=== PATIENT | female | born 1945 | race Caucasian/White ===

== ENCOUNTER 2016-10-04 10:18 | Day surgery (SDC) | payer MEDICARE ==
[~2016-10-04] VITALS: Ht 160 cm; Wt 88.1 kg
[~2016-10-04 10:18] MED LIST: ALPR.25 PO; DICL50 PO; FURO20 PO; LEVO50TA4 PO; MULT-65 PO; PRIN10TA PO
[2016-10-04 10:51] VITALS: BP 164/78; PULSE 87; RESP 16; TEMP 98.2; O2SAT 98
[2016-10-04] MEDS ORDERED: LISI-519 PO (11:02)
[2016-10-04] MEDS ORDERED: ALPR0.25 PO (11:02)
[2016-10-04] MEDS ORDERED: FURO20TA PO (11:02)
[2016-10-04] MEDS ORDERED: PANT40TA3 PO (11:02)
[2016-10-04] MEDS ORDERED: VESI5TAB PO (11:02)
[2016-10-04] MEDS ORDERED: TRAM-492 PO (11:02)
[2016-10-04] MEDS ORDERED: MULT1TAB46 (11:02)
[2016-10-04] MEDS ORDERED: OMEGCAP PO (11:02)
[2016-10-04] MEDS ORDERED: LACTCAP8 PO (11:02)
[2016-10-04] MEDS ORDERED: TAMOPOW11 PO (11:02)
[2016-10-04] MEDS ORDERED: DOCU1CAP25 (11:02)
[2016-10-04] MEDS ORDERED: ASCO100016 (11:02)
[2016-10-04] MEDS ORDERED: LEVO25TA4 PO (11:02)
[2016-10-04] MEDS ORDERED: DICL75TA PO (11:02)
[2016-10-04] MEDS ORDERED: LORazepam 2 MG/ML VIAL ONE (11:03)
[2016-10-04] MEDS ORDERED: HEPARIN-NS/PF INJ 500 ML ONE (12:27)
[2016-10-04] MEDS ORDERED: MIDAZOLAM HCL 2 MG/2 ML VIAL ONE ×2 (12:42→13:11)
[2016-10-04] MEDS ORDERED: NITROGLYCERIN INJ 5 ML ONE (12:53)
[2016-10-04] MEDS ORDERED: HEPARIN SODIUM - IV 10,000 UNITS/10 ML VIAL ONE (12:53)
[2016-10-04] MEDS ORDERED: METOCLOPRAMIDE HCL 10 MG/2 ML VIAL IV PRN (13:30)
[2016-10-04] MEDS ORDERED: SODIUM CHLOR 0.9% 250 ML INJ 250 ML IV PRN (13:30)
[2016-10-04] MEDS ORDERED: oxyCODONE/ACETAMINOPHEN 5 MG/325 MG TAB PO PRN ×2 (13:30)
[2016-10-04] MEDS ORDERED: MISC INFORMATION XX ONE (13:30)
[2016-10-04] MEDS ORDERED: BACITRACIN OINT 0.9 GM PKT TOP ONE (13:30)
[2016-10-04] MEDS ORDERED: ONDANSETRON HCL 4 MG/2 ML VIAL IV PRN (13:30)
[2016-10-04] MEDS ORDERED: ATROPINE SULFATE 1 MG/ML VIAL IV PRN (13:30)
[2016-10-04] MEDS ORDERED: LORazepam 2 MG/ML VIAL IV PRN (13:30)
[2016-10-04] MEDS ORDERED: LIDOCAINE HCL 1% 50 ML VIAL INFIL PRN (13:30)
--- NOTE | 2016-10-04 13:39 | CATHPROC ---
[facility] HIS Report Study Information Study Number Admission Scheduled Start Study Start [id number] Oct 04 2016 10:18AM 10/04/2016 Oct 04 2016 12:33PM [facility] Cardiac Catheterization Admit Source Facility Department Other [facility] - Rfid Engineer Physician and Clinical Staff Initial Brian Jurado Radio Intelligence Operatorapoorva Avila RN, Martinez Sequeira cathlab, cathlab Recorder Cory Lackey RCIS(BS) Evie Bar RCIS TECH2 Procedures Performed Procedure Location (Site) Vessel Name Coronary Angiograms LCA Left Coronary Coronary Angiograms RCA Right Coronary L Heart Cath Equipment Time Shingle Carrier Description Size Mfg Part Number Used/Scraped TRANSDUCER, TRUWAVE [id number] 12:39 SILVERMAN LEAVITT * Used W/STOCKCOCK *[id number] TRANSDUCER, TRUWAVE [id number] 12:53 SILVERMAN LEAVITT * Used W/STOCKCOCK *[id number] 534-520T *[id number] [id number] *[id number] 12:39 MEDLINE INDUSTRIES PACK, CCL CUSTOM * Used *[id number] 12:39 BioCision PACER PEN, SKIN DUAL W/ RULER * Used *[id number] SHEATH, FR6 RADIAL PRELUDE 12:53 Hitlab MEDICAL FR 6 [id number] Used EASE 11CM [id number] 12:39 Hitlab MEDICAL WIRE, 3MMJ .035 180CM 180CM Used *[id number] 12:53 Hitlab MEDICAL WIRE, EXCHANGE 260CM 3MMJ 260CM Used *[id number] 12:39 NAMIC MANIFOLD, 2 PORT * Used *[id number] 12:39 NYCOMED OMNIPAQUE, 350 MG, 150ML 150ML [id number] Used [id number] 12:39 CORDOVA MEDICAL BLANKET,WARM AIR CCL * Used *[id number] 12:39 TERUMO MEDICAL SHEATH, FR5 TERUMO (10CM) FR 5 [id number] Used 12:59 TERUMO MEDICAL SHEATH, FR7 TERUMO (10CM) FR 7 [id number] Used History: Allergies Allergy Reaction Talwin SOB History: Risk Factors Family History of Hypertension Dyslipidemia Previous DE Previous Heart Failure Premature CAD Yes No No No No Prior Valve Prior PCI Prior CABG Surgery No No No Cerebrovascular Peripheral Artery Chronic Lung On Dialysis Diabetes Disease Disease Disease No No No No No History: Stress Tests Stress or Imaging Studies Performed No History: Other Disease Selection Items HTN History: Other Current Smoker No Labs Hgb (g/dl) Hct (%) WBC (l/cumm) Platelets (thousands) 12.00-18.00 37.00-55.00 4.80-10.80 140.00-450.00 11.3 35.7 4.5 98 Glucose (mg/dl) BUN (mg/dl) Creatinine (mg/dl) BUN:Creatinine (1:x) 60.00-110.00 8.00-20.00 0.10-9.00 10.00-20.00 109 18.8 0.8 23.5 Na (meq/l) K (meq/l) 138.00-146.00 3.80-5.10 142 4.4 INR (PTT:PT) 0.50-2.00 1.1 CPK-MB (ng/ML) 0.00-7.00 Not Drawn Medication Medication Total Dose (Bolus/Oral) Medication Total Dosage/Unit 1% XYLOCAINE 23 mL FENTANYL 100 mcg OXYGEN 2 l/min VERSED 4 mg Medications (Bolus/Oral) Medication Time Given Dosage/Unit Administered By Reason VERSED 10/04/2016 1:02:19 PM 2 mg Martinez Avila RN 2 mg VERSED given in lab by Martinez Avila RN in Right Forearm via Peripheral IV. Ordered by Crow Cheung. FENTANYL 10/04/2016 1:03:34 PM 50 mcg Martinez Avila RN 50 mcg FENTANYL given in lab by Martinez Avila RN in Right Forearm via Peripheral IV. Ordered by Brian Cheung. OXYGEN 10/04/2016 1:04:02 PM 2 l/min Austin PATTON, Martinez 2 l/min OXYGEN given in lab by Martinez Avila RN via Nasal. 1% XYLOCAINE 10/04/2016 1:06:30 PM 3 mL Brian Cheung 3 mL 1% XYLOCAINE given in lab by Brian Cheung in Right Radial via Subcutaneous. VERSED 10/04/2016 1:12:19 PM 1 mg Austin PATTON, Martinez 1 mg VERSED given in lab by Martinez Avila RN in Right Forearm via Peripheral IV. Ordered by Crow Cheung. FENTANYL 10/04/2016 1:13:25 PM 25 mcg Martinez Avila RN 25 mcg FENTANYL given in lab by Martinez Avila RN in Right Forearm via Peripheral IV. Ordered by Brian Cheung. 1% XYLOCAINE 10/04/2016 1:16:45 PM 20 mL Brian Cheung 20 mL 1% XYLOCAINE given in lab by Brian Cheung in Right Groin via Subcutaneous. FENTANYL 10/04/2016 1:21:13 PM 25 mcg Martinez Avila RN 25 mcg FENTANYL given in lab by Martinez Avila RN in Right Forearm via Peripheral IV. Ordered by Brian Cheung. VERSED 10/04/2016 1:22:27 PM 1 mg Martinez Avila RN 1 mg VERSED given in lab by Martinez Avila RN in Right Forearm via Peripheral IV. Ordered by Crow Cheung Medication (Drip) Medication Time Given Dosage/Unit Concentration/Unit Diluent (ml) Solution IV Solutions 10/04/2016 12:33:35 PM 0 mL (IV) 500 NaCl .9 Patient arrived on IV Solutions given by anupam bo in Right Forearm via Peripheral IV. Pump/Dr ip Flow = 20 ml/hr using NaCl .9. Initial Case Assessment Cardiovascular HR Rhythm NIBP Chest Pain 88 sinus 132/63 0 Edema Present Skin color Skin None Normal Warm Dry Circulatory - Right Pulses Dorsalis Pedis Femoral 2 2 Scale (0,1,2,3,4,d) Circulatory - Left Pulses Dorsalis Pedis Femoral 1 1 Scale (0,1,2,3,4,d) Neurological State Oriented to time-place- Alert Moves all extremities person Respiration - General Respiration Rate SpO2 (%) (B/min) 15 97 Final Case Assessment Cardiovascular HR Rhythm NIBP Chest Pain 93 sinus 97/50 0 Edema Present Skin color Skin None Normal Warm Dry Circulatory - Right Pulses Dorsalis Pedis Femoral 2 2 Scale (0,1,2,3,4,d) Circulatory - Left Pulses Dorsalis Pedis Femoral 1 1 Scale (0,1,2,3,4,d) Neurological State Oriented to time-place- Alert Moves all extremities person Respiration - General Respiration Rate SpO2 (%) O2 (lpm) (B/min) 13 99 2 Chronological Log Time Study Chronological Log 12:33:23 Patient arrived via Bed. 12:33:24 Patient Name, D.O.B, / Armband Verified By R.N. 12:33:24 Consent signed by the physician and the patient and verified by the Rfid Engineer staff. 12:33:25 Pre-op and post- op instructions given; patient acknowledges understanding of instructions. 12:33:25 Verbal Stimulation=2 Physical Stimulation=2 Airway=2 Respiration=2 TOTAL=8. (0=absent, 1=li mited, 2=present) 12:33: Presedation assessment performed by Rfid Engineer RN. 12:33: Immediate Presedation assesment performed by physician. 12:33: Patient has been NPO for More than 6Hrs. 12:33: Skin Breakdown- none per patient 12:: Patient Warmer Placed on the Table. 12:: Magdi Prominences Protected 12:33: A # 20 IV was noted in the Forearm (right). Grade = 0 Patient arrived on IV Solutions given by cathlab, cathlab in Right Forearm via Peripheral IV. P ump/Drip Flow = 20 ml/hr 12::35 using NaCl .9. 12:33:35 History and physical on the chart or being dictated. Assessment: Initial Case, HR=88 BPM, Rhythm=sinus, EILX=278/63 mmhg, Chest Pain=0, Edema=None, Color=Normal, Skin = Warm, Dry Right Pulses: Fred Ped=2, Femoral=2 12:49:03 Left Pulses: Fred Ped=1, Femoral=1 Neurological: State=Alert, Ox3, SHIELDS Respiration: Resp=15 B/min, SpO2=97 % 12:49:13 HR=89 bpm, VCSI=292/63 mmhg, SpO2=97.0 %, Resp=13 B/min, Pain=0, Jenae=10, Potter=2 12:50:22 MD arrived. 12:50:24 Bilateral groins and right radial prepped with 2% chlorhexidine, and with a 3 min. waiting time. 12:50:29 Immediate Presedation assesment performed by physician. 12:51:12 HR=85 bpm, MXAN=122/70 mmhg, SpO2=97.0 %, Resp=12 B/min, Pain=0, Jenae=10, Potter=2 12:53:13 HR=94 bpm, MMUX=225/76 mmhg, SpO2=96.0 %, Resp=16 B/min, Pain=0, Jenae=10, Potter=2 12:55:13 HR=91 bpm, IMYG=823/68 mmhg, SpO2=95.0 %, Resp=12 B/min, Pain=0, Jenae=10, Potter=2 Vitals capture started with the following parameters, Patient=Adult, Interval=5 min, Initial Pr bakhbk=603 mmHg, 12:56:45 Deflation Rate=5 mmHg 12:57:24 HR=95 bpm, QKCH=788/61 mmhg, SpO2=96.0 %, Resp=11 B/min, Pain=0, Jenae=10, Potter=2 13:02:19 2 mg VERSED given in lab by Martinez Avila RN in Right Forearm via Peripheral IV. Ordered by Brian Cheung. 13:02:23 HR=99 bpm, KLLN=445/62 mmhg, SpO2=96.0 %, Resp=14 B/min, Pain=0, Jenae=10, Potter=2 13:03:34 50 mcg FENTANYL given in lab by Martinez Avila RN in Right Forearm via Peripheral IV. Ordered by Brian Cheung. 13:04:02 2 l/min OXYGEN given in lab by Martinez Avila RN via Nasal. 13:05:12 Pressure channel 1 zeroed. Time Out. Correct patient, correct procedure,correct physician, ,power injector loaded with con trast with surgical team 13:05:53 present. Time Out Concurred by MD, individual staff in procedure 13:06:06 Case Start 13:06:07 Verbal Stimulation=2 Physical Stimulation=2 Airway=2 Respiration=2 TOTAL=8. (0=absent, 1=li mited, 2=present) 13:06:30 3 mL 1% XYLOCAINE given in lab by Brian Cheung in Right Radial via Subcutaneous. 13:07:24 HR=85 bpm, PGUT=274/55 mmhg, SpO2=96.0 %, Resp=11 B/min, Pain=0, Jenae=10, Potter=2 13:12:19 HR=86 bpm, ZGPX=803/50 mmhg, SpO2=99.0 %, Resp=12 B/min, Pain=0, Jenae=10, Potter=2 13:12:19 1 mg VERSED given in lab by Martinez Avila RN in Right Forearm via Peripheral IV. Ordered by Brian Cheung. 13:13:25 25 mcg FENTANYL given in lab by Martinez Avila RN in Right Forearm via Peripheral IV. Ordered by Biran Cheung. 13:14:39 Unable to obtain radial access, moving to RFA access. 13:16:45 20 mL 1% XYLOCAINE given in lab by Brian hCeung in Right Groin via Subcutaneous. 13:17:23 HR=84 bpm, NIBP=97/50 mmhg, SpO2=99.0 %, Resp=11 B/min, Pain=0, Jenae=10, Potter=2 13:17:37 Access site was Right Femoral Artery. 13:17:38 A SHEATH, FR5 TERUMO (10CM) FR 5 was advanced into the Fem Art (right) using the Percutaneo us technique. A JL 4.0 INFINITI CATHETER FR 5 was advanced over a wire. OMNIPAQUE, 350 MG, 150ML 150ML was us ed for 13:17:40 injections. Recorded Pressure: Ao, HR=83, Condition=Condition 1 13:17:42 (Aorta) Ao 90/48/65 13:18:12 The LCA was injected and visualized at various angles. OMNIPAQUE, 350 MG, 150ML 150ML used . After removing the current catheter a JR 4.0 INFINITI CATHETER FR 5 was advanced over a WIRE, 3 MMJ .035 180CM 13:19:06 180CM. 13:21:13 25 mcg FENTANYL given in lab by Martinez Avila RN in Right Forearm via Peripheral IV. Ordered by Brian Cheung. 13:21:13 The RCA was injected and visualized at various angles. OMNIPAQUE, 350 MG, 150ML 150ML used . 13:21:18 Catheter was removed 13:21:19 Case End Assessment: Final Case, HR=93 BPM, Rhythm=sinus, NIBP=97/50 mmhg, Chest Pain=0, Edema=None, C olor=Normal, Skin = Warm, Dry Right Pulses: Fred Ped=2, Femoral=2 13:21:27 Left Pulses: Fred Ped=1, Femoral=1 Neurological: State=Alert, Ox3, SHIELDS Respiration: Resp=13 B/min, SpO2=99 %, O2=2 lpm 13:22:05 Catheter(s) removed without difficulty 13:22:20 HR=90 bpm, PVWX=861/53 mmhg, NyU4=824.0 %, Resp=11 B/min, Pain=0, Jenae=10, Potter=2 13:22:27 1 mg VERSED given in lab by Austin PATTON, Martinez in Right Forearm via Peripheral IV. Ordered Brian Thomas. 13:23:32 Sheath removed; pressure applied to access site. 13:24:47 No case complications noted. 13:24:48 Cine recording checked. 13:24:49 Bedside Report will be given. 13:24:51 Verbal Stimulation=2 Physical Stimulation=2 Airway=2 Respiration=2 TOTAL=8. (0=absent, 1= limited, 2=present) 13:24:59 A Left Heart Cath was performed. 13:27:19 HR=84 bpm, NIBP=98/53 mmhg, SpO2=99.0 %, Resp=11 B/min, Pain=0, Jenae=10, Potter=2 13:32:54 HR=83 bpm, OSKN=910/53 mmhg, LfD0=399.0 %, Resp=11 B/min, Pain=0, Jenae=10, Potter=2 13:35:42 Sterile dressing applied to site Vitals capture started with the following parameters, Patient=Adult, Interval=5 min, Initial Arwszong=835 mmHg, 13:38:03 Deflation Rate=5 mmHg 13:38:39 HR=83 bpm, AFHD=598/59 mmhg, DsP6=688 %, Resp=11 B/min 13:38:54 Vitals capture stopped. 13:40:44 [facility] - Contrast Media Used In Study Contrast Total Opened (mL) Total Used (mL) Total Wasted (mL) Omnipaque 40 40 0 End Study - Maximum Contrast Load Max Contrast Load (mL) 550.6 End Study - Radiation Exposure Fluoro Time (minutes) 1.2 End Study - Sheaths Sheaths Pulled By Sheath Hold Time (min) Evie Malhotra 15 End Study - Patient Disposition Complications Transferred To Interventional Outcome No Rfid Engineer Holding No attempt made
[2016-10-04] MEDS ORDERED: LORazepam 2 MG/ML VIAL IV ONE (13:45)
[2016-10-04] MEDS ORDERED: SODIUM CHLORIDE 0.9% FLUSH 10 ML FLUSH IV FLUSH PRN (14:30)
--- NOTE | 2016-10-04 15:02 | MA ---
cc: JOON JONES DATE: 10/04/2016 PROCEDURE PERFORMED 1. Fluoroscopy with interpretation. 2. Coronary angiography. METHOD The risks, benefits and alternatives were discussed with the patient. The patient understood and consented to the procedure. The patient's right groin is prepped and draped in sterile fashion. The right groin is anesthetized with 2% lidocaine. The right common femoral is cannulated and a 5-Polish, 11 cm sheath was placed without difficulty. CORONARY ANGIOGRAPHY 1. The left main coronary is angiographically normal. 2. The left anterior descending coronary is angiographically normal. 3. The left circumflex is angiographically normal. 4. The right coronary is a dominant vessel giving rise to a posterior descending branch and is angiographically normal. CONCLUSIONS 1. Angiographically normal coronary arteries. 2. Severe aortic stenosis. PLAN Consul cardiothoracic surgery for consideration of aortic valve replacement. MD AUNDREA Torrez/GORDON /2:27 PM /3:00 PM
--- NOTE | 2016-10-04 15:25 | MB ---
cc: ANGIE LAND DATE OF CONSULTATION: 10/04/2016 DATE OF : 1945 HISTORY OF PRESENT ILLNESS A 71-year-old patient of Dr. Cheung and Dr. Bobby Martinez with a history of aortic stenosis. She has been complaining of increased shortness of breath with minimal exertion. Denied any palpitations or chest pain. No syncope. She had an echocardiogram on August 31 that showed some moderate LVH, EF normal at 60-65%, grade I diastolic dysfunction. The aortic valve had a valve area of 0.5, mean gradient of 80, mild tricuspid regurgitation. The left atrium was mildly dilated. We were consulted to evaluate for aortic valve replacement. PAST MEDICAL HISTORY 1. Aortic stenosis. 2. Hypertension. 3. Hypothyroidism. 4. History of left breast cancer. 5. Anxiety. 6. Carotid artery disease. 7. Degenerative disc disease. 8. Diverticulosis. 9. Fatty liver. 10.Former smoker. PAST SURGICAL HISTORY 1. Left knee surgery. 2. Left breast lumpectomy. ALLERGIES TALWIN. MEDICATIONS Home meds include: 1. Diclofenac. 2. Fish oil. 3. Lasix. 4. Levothyroxine. 5. Lisinopril. 6. Protonix. 7. Probiotic. 8. Tamoxifen. 9. Tramadol. 10.Vesicare. 11.Vitamin-C. FAMILY HISTORY Noncontributory. SOCIAL HISTORY Prior tobacco abuse. , lives with her . REVIEW OF SYSTEMS GENERAL: In general no night sweats, fever, heat or cold intolerance. SKIN: No psoriasis, itching or hives. HEENT: No blurred vision or hearing loss. RESPIRATORY: Positive for shortness of breath. No cough. CARDIOVASCULAR: No chest pain. No paroxysmal nocturnal dyspnea. No orthopnea. No leg cramps. No edema. GASTROINTESTINAL: No diarrhea or vomiting. GENITOURINARY: No burning, frequency, urgency. DATA WAREHOUSE MANAGER: No history of TIA, CVA, seizure disorder. ENDOCRINE: Positive for hypothyroidism. PHYSICAL EXAMINATION VITAL SIGNS: Blood pressure 160/70, heart rate 87, temperature max 98.2. GENERAL: Patient is awake and alert, in no acute distress. HEENT: Head is normocephalic, atraumatic. Pupils equal and reactive. Oral mucosa pink and moist. NECK: Supple. No JVD. HEART: Heart sounds S1, S2, regular rate and rhythm. No audible rubs, murmurs or gallops. LUNGS: Clear to auscultation. No wheezes, rales or rhonchi. ABDOMEN: Soft, nontender. No masses or organomegaly. EXTREMITIES: No cyanosis, clubbing or edema. LABORATORY DATA INR 1.1. Sodium 142, potassium 4.4, BUN 18, creatinine 0.87. WBC 4.5, hemoglobin 11, hematocrit 36. Cardiac cath revealed no evidence of coronary disease. EKG shows sinus rhythm, no acute changes. IMAGING She had a carotid ultrasound which showed no significant disease on the right. She had some mild nonobstructive atherosclerotic changes on the left. IMPRESSION This is a very pleasant 71-year-old patient with known aortic stenosis evaluated by Dr. Angie Land. PLAN The plan will be for aortic valve replacement using a minimally invasive approach. In the meantime we will schedule her for TuesdayOctober 12. She will hold her lisinopril. Will order lab work as today and bring her again early that morning for further type and cross. The procedure, alternatives and risks have been discussed with the patient. Dictated by: BRANT Tolentino MD SANDRA Luciano/GORDON /2:26 PM /3:30 PM
[2016-10-04] MEDS ORDERED: IOHEXOL 350 MG/ML 50 ML BTL (for Cath Lab) OTHER ONE (15:43)
--- NOTE | 2016-10-04 16:20 | RADRPT ---
EXAM DATE/TIME: 10/04/2016 15:53 [facility] COMPARISON: No previous studies available for comparison. INDICATIONS : Pre-op for aortic valve replacement. RADIATION DOSE: 7.22 CTDIvol (mGy) MEDICAL HISTORY : Hypertension. Cardiovascular disease Carcinoma, breast. SURGICAL HISTORY : Hysterectomy. Cholecystectomy.Breast biopsy. ENCOUNTER: Initial ACUITY: 1 day PAIN SCALE: Non-responsive LOCATION: chest TECHNIQUE: Volumetric scanning of the chest was performed. Using automated exposure control and adjustment of t he mA and/or kV according to patient size, radiation dose was kept as low as reasonably achievable to obtain optimal diagnostic quality images. FINDINGS: LUNGS: There is vague density in the posterior lateral right base likely related to consolidation or atelect asis. No focal nodules are seen. PLEURAE: There is no pleural thickening or pleural effusion. MEDIASTINUM: The heart and great vessels demonstrate no acute abnormality. There is no mediastinal or hilar lymph adenopathy. Dense calcification is seen at the aortic valve level. Calcification is seen over the LAD region. The ascending aorta and aortic arch appear normal in size and configuration. AXILLAE: Within normal limits. No lymphadenopathy. The there is a 2.2 x 1.3 cm area of distortion seen in the posterior left breast. On a prior mammogram from 07/05/2016, this was reported as benign stable posto perative change. MUSCULOSKELETAL: Within normal limits for patient age. MISCELLANEOUS: The visualized upper abdominal organs demonstrate no acute abnormality. The patient is status post ch olecystectomy. This increased density in the central collecting system of the right kidney likely rel ated to contrast. It can be correlated the patient's had recent contrast enhanced study. CONCLUSION: 1. Dense calcification at the aortic valve level. 2. Suspected vague area of atelectasis or consolidation at the right lateral base. 1. Valdez Gibbs MD on October 04, 2016 at 16:09 Board Certified Radiologist. This report was verified electronically.
[2016-10-04 18:23] LABS: ALT (GPT) 19 U/L (10-53); ANION GAP 6 MEQ/L (5-15); AST (GOT) 24 U/L (15-37); BICARBONATE 25.7 MEQ/L (21.0-32.0); BLOOD UREA NITROGEN 20 MG/DL (7-18); CHLORIDE 111 MEQ/L (98-107); GLOMERULAR FILTRATION RATE 88 ML/MIN (>89); SODIUM (NA) 143 MEQ/L (136-145)
[2016-10-04 18:26] LABS: ALKALINE PHOSPHATASE 63 U/L (45-117); TOTAL BILIRUBIN ADULT 0.7 MG/DL (0.2-1.0)
[2016-10-04 20:07] LABS: BACTERIA, URINE OCC /hpf; BLOOD, URINE NEG (NEG); COMMENT (UR) CULT NOT INDICATED; CULTURE IF INDICATED CULT NOT INDICATED; GLUCOSE,URINE NEG (NEG); KETONE, URINE NEG (NEG); MUCUS URINE FEW /lpf (OCC); NITRITE,URINE NEG (NEG); SQUAMOUS EPITHELIAL CELL URINE 2 /hpf (0-5); URINE COLOR YELLOW (YELLW/STRAW)
--- NOTE | 2016-10-04 20:14 | RADRPT ---
EXAM DATE/TIME: 10/04/2016 19:51 [facility] COMPARISON: CT THORAX W/O CONTRAST, October 04, 2016, 15:53. INDICATIONS : Evaluate for pneumonia, pneumothorax, or communicate disease. Pre op valve replacement. MEDICAL HISTORY : None. SURGICAL HISTORY : None. ENCOUNTER: Initial ACUITY: 1 day PAIN SCORE: 0/10 LOCATION: Bilateral chest FINDINGS: PA and lateral views of the chest demonstrate a normal-sized cardiac silhouette. There is no effusion , consolidation, or pneumothorax. The bones and soft tissues demonstrate no acute abnormality. There are mild degenerative changes of the thoracic spine. CONCLUSION: No acute cardiopulmonary abnormality is identified. Valdez Foster MD on October 04, 2016 at 20:11 Board Certified Radiologist. This report was verified electronically.
[2016-10-04] MEDS ORDERED: SODIUM CHLORIDE 0.9% FLUSH 10 ML FLUSH IV FLUSH SCH (21:00)
--- NOTE | 2016-10-05 09:39 | RSPPFT ---
DATE OF PROCEDURE: 10/04/16 COMMENTS: Spirometry shows FVC of 1.8 at 57% of predicted, FEV1 of 1.2 at 55%, FEV1/FVC ratio is decreased. Flow is decreased at FEF 25-75. Flow volume loop indicates an obstructive pattern. IMPRESSION: 1. Moderately severe obstructive lung disease. 2. Post-bronchodilator study was not done.
--- NOTE | 2016-10-05 16:42 | EKG ---
Date Performed: 10/04/2016 Time Performed: 11:08:38 PTAGE: 71 years EKG: Sinus rhythm . Normal ECG PREVIOUS TRACING : 08/13/2014 10.27 DOCTOR: Gayle Lopez Interpretating Date/Time 10/05/2016 16:41:22
== END 2016-10-04 19:44 | disposition home or self-care (01) ==
LOC: HCAT 10:18 → HDIC 10:19 → HCAT 19:44
PROVIDERS: ATTEND Internal Medicine
DX: I35.0 Nonrheumatic aortic (valve) stenosis (principal); I10 Essential (primary) hypertension; E03.9 Hypothyroidism, unspecified; Z85.3 Personal history of malignant neoplasm of breast; Z87.891 Personal history of nicotine dependence
CPT/HCPCS: 71020; 71250; 80053; 81001; 86850; 86900; 86901; 87641; 93005; 93454; 94010; C1769; C1893; J1644; J2060; J2250; J3010; 83036; Q9967

== ENCOUNTER 2016-10-06 09:31 | Inpatient (IN) | payer MEDICARE ==
[~2016-10-06] VITALS: Ht 160 cm; Wt 95.0 kg
[~2016-10-06 09:31] MED LIST changes: -ALPR.25 PO; +ALPR0.25 PO; +ASCO100016; -DICL50 PO; +DICL75TA PO; +DOCU1CAP25; -FURO20 PO; +FURO20TA PO; +LACTCAP8 PO; +LEVO25TA4 PO; -LEVO50TA4 PO; +LISI-519 PO; -MULT-65 PO; +MULT1TAB46; +OMEGCAP PO; +PANT40TA3 PO; -PRIN10TA PO; +TAMOPOW11 PO; +TRAM-492 PO; +VESI5TAB PO
[2016-10-12] VITALS (11 sets, daily range): BP systolic 103–139; BP diastolic 42–58; PULSE 60–89; RESP 12–15; TEMP 96.4–99; O2SAT 95–99
[2016-10-12] MEDS ORDERED: PROTAMINE SULFATE 250 MG/25 ML VIAL IV ONE ×2 (05:00→13:46)
[2016-10-12] MEDS ORDERED: PHENYLEPHRINE HCL 10 MG/ML VIAL IV ONE (05:00)
[2016-10-12] MEDS ORDERED: CALCIUM CHLORIDE 10% SOLN 1 GRAM/10 ML SYR IV ONE (05:00)
[2016-10-12] MEDS ORDERED: HEPARIN SODIUM - SQ 10,000 UNITS/ML VIAL SQ ONE (05:00)
[2016-10-12] MEDS ORDERED: AMINOCAPROIC ACID INJ 250 MG/ML 20 ML VIAL IV ONE ×2 (05:00→13:46)
[2016-10-12] MEDS ORDERED: MAGNESIUM SULFATE 1000 MG/2 ML VIAL (PED) IV ONE (05:00)
[2016-10-12] MEDS ORDERED: GLYCOPYRROLATE 0.2 MG/ML VIAL IV ONE (05:00)
[2016-10-12] MEDS ORDERED: LIDOCAINE HCL 2% 100 MG/5 ML SYRINGE IV PUSH ONE (05:00)
[2016-10-12] MEDS ORDERED: EPINEPHrine HCL (1:1000) 1 MG/ML VIAL IV ONE (05:00)
[2016-10-12] MEDS ORDERED: ARTIFICIAL TEARS OPTH OINT 3.5 APPLIC/3.5 GM TUBO ONE (05:00)
[2016-10-12] MEDS ORDERED: NITROGLYCERIN-DEXTROSE INJ 250 ML IV ONE (05:00)
[2016-10-12] MEDS ORDERED: CHLORHEXIDINE GLUCONATE 4% SOLN 120 ML BTL TOPICAL SCH (06:00)
[2016-10-12] MEDS ORDERED: POVIDONE IODINE 5% (ANTISEPSIS KIT) 4 APPLICATIONS EACH NARE PRN (06:00)
[2016-10-12] MEDS ORDERED: CHLORHEXIDINE GLUCONATE 2 % 1 PACK (2 CLOTHS) TOPICAL PRN (06:00)
[2016-10-12] MEDS ORDERED: CEFAZOLIN 500 MG in NS IRR BTL 500 ML IRRIGATION SCH (06:00)
[2016-10-12] MEDS ORDERED: ceFAZolin 2 GM PREMIX 50 ML IV SCH (06:00)
[2016-10-12] MEDS ORDERED: LACTATED RINGER'S 1000 ML IV PRN (06:00)
[2016-10-12] MEDS ORDERED: INSULIN REGULAR 100 UNITS in NS 100 ML IV SCH (06:00)
[2016-10-12] MEDS ORDERED: METOPROLOL TARTRATE 25 MG TAB PO PRN (06:00)
[2016-10-12] MEDS ORDERED: SODIUM CHLORID 0.9% 500 ML IV PRN (06:00)
[2016-10-12] MEDS ORDERED: METOPROLOL TARTRATE 25 MG TAB PO SCH (06:00)
[2016-10-12] MEDS ORDERED: INSULIN HUMAN REGULAR 1,000 UNITS/10 ML VIAL SQ PRN (06:00)
[2016-10-12] MEDS ORDERED: TYLE325T PO (06:33)
[2016-10-12] MEDS ORDERED: ceFAZolin 2 GM PREMIX 50 ML ONE (06:39)
[2016-10-12] MEDS ORDERED: VANCOMYCIN HCL 1000 MG VIAL ONE (06:39)
[2016-10-12] MEDS ORDERED: HEPARIN SODIUM - SQ 10,000 UNITS/ML VIAL ONE (06:40)
[2016-10-12] MEDS ORDERED: methylPREDNISolone SOD SUCC 125 MG/2 ML VIAL ONE (06:40)
[2016-10-12] MEDS ORDERED: CUSTODIOL HTK IRR SOLN 1,000 ML ONE (07:15)
[2016-10-12] MEDS ORDERED: HEPARIN SODIUM - IV 10,000 UNITS/10 ML VIAL ONE (07:16)
[2016-10-12] MEDS ORDERED: POTASSIUM CHLORIDE 40 MEQ/20 ML VIAL ONE ×2 (07:16→12:20)
[2016-10-12] MEDS ORDERED: MANNITOL INJ 50 ML ONE (07:16)
[2016-10-12] MEDS ORDERED: ALBUMIN HUMAN 25% 12.5 GM/50 ML BAGP IV ONE (07:17)
[2016-10-12] MEDS ORDERED: SODIUM BICARBONATE 8.4% INJ 50 MEQ/50 ML SYR ONE (07:17)
[2016-10-12] MEDS ORDERED: BUPIVACAINE HCL PF 0.5% 30 ML VIAL ONE (10:57)
[2016-10-12] MEDS ORDERED: ACETAMINOPHEN 1000 MG/100 ML VIAL IV ONE (10:57)
[2016-10-12] MEDS ORDERED: DEXMEDETOMIDINE HCL 200 MCG/2 ML VIAL ONE (10:59)
[2016-10-12] MEDS ORDERED: ceFAZolin INJ 1,000 MG VIAL ONE (11:53)
[2016-10-12] MEDS ORDERED: LACTATED RINGER'S 1000 ML INJ 500 ML IV PRN (12:46)
[2016-10-12] MEDS ORDERED: CALCIUM CHLORIDE INJ 1 GM in SODIUM CHLORIDE 0.9% INJ 100 ML IV PRN (13:00)
[2016-10-12] MEDS ORDERED: POTASSIUM CHLOR 20 MEQ PREMIX 100 ML IV PRN ×3 (13:00)
[2016-10-12] MEDS ORDERED: RESP: ALBUTEROL 2.5 MG/IPRATROPIUM 0.5 MG NEB (PRN) NEB (13:00)
[2016-10-12] MEDS ORDERED: Post-op Orders (for Pharmacy) MISC OTHER ONE (13:00)
[2016-10-12] MEDS ORDERED: METOPROLOL TARTRATE 5 MG/5 ML VIAL IV PUSH PRN (13:00)
[2016-10-12] MEDS ORDERED: RESP: RACEPINEPHRINE 2.25% 0.5 ML NEB NEB PRN ×2 (13:00→17:15)
[2016-10-12] MEDS ORDERED: CLEVIDIPINE INJ 50 ML IV SCH (13:00)
[2016-10-12] MEDS ORDERED: hydrALAZINE HCL 20 MG/ML VIAL IV PRN (13:00)
[2016-10-12] MEDS ORDERED: INSULIN REGULAR (IV INFUSION) 100 UNITS in SODIUM CHLORIDE 0.9% INJ 99 ML IV SCH (13:00)
[2016-10-12] MEDS ORDERED: DEXTROSE 50% IN WATER 50 ML VIAL(D50) IV PUSH PRN (13:00)
[2016-10-12] MEDS ORDERED: POTASSIUM CHLORIDE 20 MEQ CONTROLLED RELEASE TAB PO PRN ×2 (13:00)
[2016-10-12] MEDS ORDERED: SODIUM CHLORIDE 0.9% FLUSH 10 ML FLUSH IV FLUSH PRN (13:00)
[2016-10-12] MEDS ORDERED: ACETAMINOPHEN 650 MG SUPP RECTAL PRN (13:00)
[2016-10-12] MEDS ORDERED: MAGNESIUM SULFATE INJ 2 GM in SODIUM CHLORIDE 0.9% INJ 100 ML IV PRN ×4 (13:00)
[2016-10-12] MEDS ORDERED: CALCIUM CHLORIDE 10% 1 GRAM/10 ML VIAL IV PRN (13:00)
--- NOTE | 2016-10-12 13:02 | PD.OP ---
cc: Angie Land MD; Brian Cheung MD Operative Report Date of Surgery: Oct 12, 2016 Preoperative Diagnosis: (1) Aortic stenosis (2) Diastolic heart failure Postoperative Diagnosis: same Procedure: Minimally invasive AVR with a 19 Intuity tissue valve LEBRON Ultrasound guided percutaneous cannulation of the left femoral artery and vein, Perclose closure Anesthesia: Dr. Martin Surgeon: Angie Land Senior Java Developer(s): JEREMY Hays Operation and Findings: The risks, benefits, complications, treatment options, and expected outcomes were discussed with the patient. The possibilities of reaction to medication, pulmonary aspiration, perforation of viscus, bleeding, recurrent infection, the need for additional procedures, failure to diagnose a condition, and creating a complication requiring transfusion or operation were discussed with the patient. The patient concurred with the proposed plan, giving informed consent. The site of surgery properly noted/marked. The patient was taken to Operating Room, identified as Angelina Wright and the procedure verified as Minimally Invasive Aortic Valve Replacement. A Time Out was held and the above information confirmed. Standard monitoring lines and Gonzalez catheter were placed. General anesthesia was induced. The patient was prepped and draped in a sterile fashion. A 6 cm right anterior thoracotomy was performed and the 3rd rib was shingled. The right internal mammary artery and vein were ligated and divided. An Tarik retractor was placed followed by a small chest retractor. The pericardium was opened and a pericardial sling was created using interrupted 0 silk sutures. A small 1 cm incision was made at the 6th intercostal space and an LV vent and pericardial suction were placed through this access port. The aorta was dissected posteriorly for crossclamp placement. The left femoral artery and vein were percutaneously accessed using ultrasound guidance. The patient was heparinized for cardiopulmonary bypass. The left femoral artery was cannulated with a 17F [employer] arterial cannula. The left femoral vein was cannulated with a 21 [employer] cannula under LEBRON guidance. Two Perclose devices were placed in the artery for later closure. Antegrade Custodiol cardioplegia were employed. The patient was placed on cardiopulmonary bypass. An aortic cross-clamp was applied and the heart was arrested using cold Custodiol cardioplegia delivered through a 14F catheter. The aorta was opened above the sinotubular ridge and the aortic valve was exposed. On opening the aorta, the valve appeared rheumatic with heavy calcification. The valve was resected as well as all annular calcification, sized for a 19 mm Intuity tissue valve which was placed with 3, 2-0 Tycron valve sutures. The valve seated well, and was balloon deployed to 4.5 genesis. The aorta was closed with running 4-0 Prolene suture. The patient systemically rewarmed and placed in Trendelenburg position. The heart was vigorously deaired with a clamp on. The clamp was removed, deairing continued. The patient was easily weaned from cardiopulmonary bypass. Decannulation was carried out without incident and both artery was secured with the Perclose sutures. The vein was controlled with manual compression. Protamine was given. There was no adverse reaction. Intraoperative LEBRON following the procedure showed a well-seated aortic valve with no perivalvular leak and preserved ventricular function. Wound was checked for hemostasis was obtained using electrocautery. A 32F right pleural chest tube was placed and secured to the skin with a 0 silk suture. The 3rd rib was reapproximated to the sternum with a small plate and screws. The fascia and pectoralis were closed with 0 Vicryl. The subcutaneous tissue was closed using a running 3-0 Monocryl suture. The skin was closed with 4-0 Monocryl. Sterile dressings were placed. At the end of the operation, all sponge, instruments, and needle counts were correct. The patient was transferred to the CVICU in stable condition. Angie Land MD Oct 12, 2016 13:02
[2016-10-12] MEDS ORDERED: VECURONIUM BROMIDE 20 MG VIAL IV ONE (13:46)
[2016-10-12] MEDS ORDERED: ONDANSETRON HCL 4 MG/2 ML VIAL IV PUSH ONE (13:46)
[2016-10-12] MEDS ORDERED: DEXTROSE 5%-LACTATED RING INJ 1,000 ML IV ONE (13:47)
[2016-10-12] MEDS ORDERED: LACTATED RINGER'S 1000 ML INJ 2,000 ML IV ONE (13:47)
[2016-10-12] MEDS ORDERED: NORMOSOL R INJ 2,000 ML IV ONE (13:48)
[2016-10-12] MEDS ORDERED: SODIUM CHLORIDE 0.9% INJ 200 ML IV ONE (13:48)
[2016-10-12] MEDS ORDERED: SODIUM CHLOR 0.9% 250 ML INJ 500 ML IV ONE (13:48)
--- NOTE | 2016-10-12 14:04 | RADRPT ---
EXAM DATE/TIME: 10/12/2016 13:33 [facility] COMPARISON: CHEST SINGLE AP, October 03, 2013, 12:12. INDICATIONS : Post op heart surgery. MEDICAL HISTORY : Hypertension. Cardiovascular disease Carcinoma, breast. SURGICAL HISTORY : Hysterectomy. Cholecystectomy.Breast biopsy. ENCOUNTER: Initial ACUITY: 1 day PAIN SCORE: Non-responsive. LOCATION: Bilateral chest FINDINGS: There is an ETT with tip approximately 2.5 cm above the mary. There is an NGT in the stomach. There is a right IJ central line with tip in the atriocaval junction. Right apical chest tube is well-posi tioned. No significant pneumothorax. Linear plate of opacities in the left lower lobe likely reflect atelectasis. Cardiac mediastinal contours are grossly stable. Remainder of the exam is unchanged. CONCLUSION: 1. Expected postoperative changes of recent cardiac surgery with tubes and lines, as above. 2. Right apical chest tube in place without significant pneumothorax. 3. Left lower lobe linear peripheral opacities, likely atelectasis. Dank Padilla MD on October 12, 2016 at 14:00 Board Certified Radiologist. This report was verified electronically.
[2016-10-12] MEDS ORDERED: MIDAZOLAM HCL 5 MG/5 ML VIAL ONE (14:09)
[2016-10-12] MEDS ORDERED: fentaNYL CITRATE 1000 MCG/20 ML VIAL ONE (14:09)
[2016-10-12] MEDS ORDERED: DOPamine INJ PREMIX 500 ML ONE (14:39)
[2016-10-12] MEDS ORDERED: RESP: ALBUTEROL 2.5 MG/IPRATROPIUM 0.5 MG NEB (SCH) NEB (16:00)
[2016-10-12] MEDS: ONDANSETRON HCL 4 MG/2 ML VIAL IV PUSH PRN (17:43)
[2016-10-12] MEDS: ACETAMINOPHEN 1000 MG/100 ML VIAL IV SCH ×2 (17:44→23:35)
[2016-10-12] MEDS: AMIODARONE 200 MG TAB PO SCH (20:57)
[2016-10-12] MEDS: SODIUM CHLORIDE 0.9% FLUSH 10 ML FLUSH IV FLUSH SCH (20:57)
[2016-10-12] MEDS: RESP: ALBUTEROL 2.5 MG/IPRATROPIUM 0.5 MG NEB (SCH) NEB (21:28)
[2016-10-12] MEDS: ALPRAZolam 0.25 MG TAB PO PRN (21:52)
[2016-10-12] MEDS: oxyCODONE/ACETAMINOPHEN 5 MG/325 MG TAB PO PRN (23:35)
[2016-10-13] VITALS (12 sets, daily range): BP systolic 102–155; BP diastolic 42–74; PULSE 80–95; RESP 15–20; TEMP 97.6–99.1; O2SAT 94–99
[2016-10-13] MEDS: oxyCODONE/ACETAMINOPHEN 5 MG/325 MG TAB PO PRN ×4 (04:10→21:05)
[2016-10-13] MEDS: RESP: ALBUTEROL 2.5 MG/IPRATROPIUM 0.5 MG NEB (SCH) NEB ×3 (04:50→20:00)
[2016-10-13 05:18] LABS: HEMATOCRIT 28.2 % (35.0-46.0); MEAN CELL VOLUME 96.6 FL (80.0-100.0); MEAN CORPUSCULAR HEMOGLOBIN 33.3 PG (27.0-34.0); MEAN CORPUSCULAR HGB CONC 34.5 % (32.0-36.0); PLATELET COUNT 56 TH/MM3 (150-450); RED BLOOD COUNT 2.92 MIL/MM3 (4.00-5.30); RED CELL DISTRIBUTION WIDTH 13.2 % (11.6-17.2); WHITE BLOOD COUNT 10.6 TH/MM3 (4.0-11.0)
[2016-10-13] MEDS: LEVOTHYROXINE SODIUM 25 MCG TAB PO SCH (05:21)
[2016-10-13] MEDS: ACETAMINOPHEN 1000 MG/100 ML VIAL IV SCH ×2 (05:21→11:55)
[2016-10-13] MEDS: PANTOPRAZOLE SOD 40 MG DELAYED RELEASE TAB PO SCH (05:21)
--- NOTE | 2016-10-13 05:28 | RADRPT ---
EXAM DATE/TIME: 10/13/2016 04:12 [facility] COMPARISON: CHEST SINGLE AP, October 12, 2016, 13:33. INDICATIONS : Status post CABG. MEDICAL HISTORY : Hypertension. Cardiovascular disease Carcinoma, breast SURGICAL HISTORY : CABG. Hysterectomy. Cholecystectomy.Breast biopsy ENCOUNTER: Subsequent ACUITY: 2 days PAIN SCORE: 8/10 LOCATION: Bilateral chest FINDINGS: Interval removal of endotracheal and gastric tubes. Right internal jugular catheter tip projects ove r the cavoatrial junction. Patchy areas of infiltrate in the lateral left lower lung similar in conf iguration to prior. There is fullness and right hilar regions. The heart is stable in configuration . Right chest drainage tube tip remains projected at the right apex. CONCLUSION: Persistent patchy infiltrates in the left lower lung. Kennedy Arzola MD on October 13, 2016 at 5:25 Board Certified Radiologist. This report was verified electronically.
[2016-10-13 05:35] LABS: BICARBONATE 28.2 MEQ/L (21.0-32.0); POTASSIUM 4.6 MEQ/L (3.5-5.1); REVIEW FLAG FINAL
[2016-10-13] MEDS: AMIODARONE 200 MG TAB PO SCH ×2 (08:28→21:05)
[2016-10-13] MEDS: ALPRAZolam 0.25 MG TAB PO PRN (08:28)
[2016-10-13] MEDS: TAMOXIFEN CITRATE 10 MG TAB PO SCH (08:28)
[2016-10-13] MEDS: ASPIRIN 81 MG CHEW TAB PO SCH (08:28)
[2016-10-13] MEDS ORDERED: DEXTROSE 50% IN WATER 50 ML VIAL(D50) IV PRN (08:45)
[2016-10-13] MEDS ORDERED: SOD PHOSPHATE/SOD BIPHOSPHATE (ADULT) ENEMA 133ML RECTAL PRN (08:45)
[2016-10-13] MEDS ORDERED: GLUCAGON 1 MG/ML VIAL OTHER PRN (08:45)
[2016-10-13] MEDS ORDERED: BISACODYL 10 MG SUPP RECTAL PRN (08:45)
[2016-10-13] MEDS: RESP: ALBUTEROL 2.5 MG/IPRATROPIUM 0.5 MG NEB (PRN) NEB (08:52)
[2016-10-13] MEDS ORDERED: PANTOPRAZOLE SOD 40 MG DELAYED RELEASE TAB PO SCH (09:00)
--- NOTE | 2016-10-13 09:06 | PD.CAR.PN ---
CVT Progress Note CVT: POD #: 1 Subjective/Hospital Course: 10/13/16 Doing well. c/o incisional and back pain Objective: Vital Signs Date Time Temp Pulse Resp B/P Pulse Ox O2 Delivery O2 Flow Rate FiO2 10/13/16 08:54 97 Nasal Cannula 3.00 10/13/16 07:00 84 10/13/16 07:00 99 Nasal Cannula 4.00 10/13/16 07:00 97.6 84 16 145/49 99 102/43 10/13/16 07:00 84 10/13/16 03:34 99 Nasal Cannula 4.00 10/13/16 03:34 98.1 85 15 121/53 97 109/54 10/13/16 03:34 85 10/13/16 03:34 80 10/12/16 23:52 89 10/12/16 23:52 97 Nasal Cannula 4.00 10/12/16 23:52 99.0 89 15 127/42 97 118/57 10/12/16 23:52 85 10/12/16 21:40 97 Nasal Cannula 4.00 10/12/16 19:24 97.6 71 15 113/53 97 114/47 10/12/16 19:24 97 Nasal Cannula 4.00 10/12/16 19:24 71 10/12/16 19:00 71 10/12/16 16:44 98 Nasal Cannula 4.00 10/12/16 16:35 97 Nasal Cannula 4.00 10/12/16 16:30 96 Nasal Cannula 4 10/12/16 15:47 98.6 10/12/16 15:15 50 10/12/16 15:00 96.4 60 15 114/51 98 103/50 10/12/16 15:00 60 10/12/16 13:35 50 10/12/16 13:35 97.9 69 12 139/58 99 110/52 10/12/16 13:35 69 10/12/16 13:34 98.6 10/12/16 13:24 95 50 Labs: Laboratory Tests Test 10/13/16 04:16 White Blood Count 10.6 TH/MM3 (4.0-11.0) Red Blood Count 2.92 MIL/MM3 (4.00-5.30) Hemoglobin 9.7 GM/DL (11.6-15.3) Hematocrit 28.2 % (35.0-46.0) Mean Corpuscular Volume 96.6 FL (80.0-100.0) Mean Corpuscular Hemoglobin 33.3 PG (27.0-34.0) Mean Corpuscular Hemoglobin 34.5 % Concent (32.0-36.0) Red Cell Distribution Width 13.2 % (11.6-17.2) Platelet Count 56 TH/MM3 (150-450) Mean Platelet Volume 9.0 FL (7.0-11.0) Sodium Level 148 MEQ/L (136-145) Potassium Level 4.6 MEQ/L (3.5-5.1) Chloride Level 114 MEQ/L (98-107) Carbon Dioxide Level 28.2 MEQ/L (21.0-32.0) Anion Gap 6 MEQ/L (5-15) Blood Urea Nitrogen 19 MG/DL (7-18) Creatinine 0.75 MG/DL (0.50-1.00) Estimat Glomerular Filtration 76 ML/MIN (>89) Rate Random Glucose 102 MG/DL (74-106) Calcium Level 8.1 MG/DL (8.5-10.1) Magnesium Level 2.0 MG/DL (1.5-2.5) Result Diagram: 10/13/16 0416 10/13/16 0416 Imaging: Last 24 hours Impressions Chest X-Ray 10/13/16 0500 Signed Impressions: Service Date/Time: Thursday, October 13, 2016 04:12 - CONCLUSION: Persistent patchy infiltrates in the left lower lung. Kennedy Arzola MD Cardiovascular: RRR Telemetry: NSR Pulmonary: CTA GI/: NABS, NT Incision: dry and intact CT: ~420 ml since OR Plan: Transfer to stepdown Ambulate x 6, up to chair [place] [facility] Meds reconciled Continue chest tube today. Advance diet Remove Angie Trinh MD Oct 13, 2016 09:06
[2016-10-13] MEDS: MULTIVITAMINS/MINERALS THERAPEUTIC TAB PO SCH (09:52)
[2016-10-13] MEDS: DOCUSATE SODIUM 100 MG CAP PO SCH ×2 (09:52→21:05)
[2016-10-13] MEDS: MAGNESIUM HYDROXIDE SUSP 30 ML CUP PO SCH (09:52)
[2016-10-13] MEDS: FUROSEMIDE 40 MG/4 ML VIAL IV PUSH SCH (09:53)
[2016-10-13] MEDS: SODIUM CHLORIDE 0.9% FLUSH 10 ML FLUSH IV FLUSH SCH ×2 (09:53→21:06)
[2016-10-13] MEDS: INSULIN ASPART SUPPLEMENTAL SCALE SQ SCH ×4 (10:00→23:20)
[2016-10-13] MEDS ORDERED: LIDOCAINE HCL 2% 20 ML VIAL ONE (12:46)
[2016-10-13] MEDS: SENNOSIDES 8.6 MG TAB PO SCH (21:00)
--- NOTE | 2016-10-13 23:08 | EKG ---
Date Performed: 10/13/2016 Time Performed: 04:22:22 PTAGE: 71 years EKG: Sinus rhythm Right axis deviation IV conduction defect Abnormal ECG PREVIOUS TRACING : 10/04/2016 11.08 Compared to the previous tracing IVCD present DOCTOR: Tania Stratton Interpretating Date/Time 10/13/2016 23:06:44
[2016-10-14] VITALS (20 sets, daily range): BP systolic 124–168; BP diastolic 38–55; PULSE 78–98; RESP 14–22; TEMP 98.9–99.8; O2SAT 93–98
[2016-10-14] MEDS: oxyCODONE/ACETAMINOPHEN 5 MG/325 MG TAB PO PRN ×4 (01:56→22:10)
[2016-10-14] MEDS: INSULIN ASPART SUPPLEMENTAL SCALE SQ SCH ×5 (01:59→21:00)
[2016-10-14 04:04] LABS: AUTOMATED NEUTROPHIL # 6.1 TH/MM3 (1.8-7.7); BASOPHIL % 0.1 % (0.0-2.0); EOSINOPHIL % 0.3 % (0.0-4.0); HEMATOCRIT 24.5 % (35.0-46.0); LYMPH % 8.5 % (9.0-44.0); LYMPHOCYTE # 0.6 TH/MM3 (1.0-4.8); MEAN CELL VOLUME 96.5 FL (80.0-100.0); MEAN CORPUSCULAR HEMOGLOBIN 33.2 PG (27.0-34.0); MEAN CORPUSCULAR HGB CONC 34.4 % (32.0-36.0); MONO % 7.9 % (0.0-8.0); NEUT % 83.2 % (16.0-70.0); PLATELET COUNT 45 TH/MM3 (150-450); RED BLOOD COUNT 2.54 MIL/MM3 (4.00-5.30); RED CELL DISTRIBUTION WIDTH 13.2 % (11.6-17.2); WHITE BLOOD COUNT 7.3 TH/MM3 (4.0-11.0)
[2016-10-14 04:24] LABS: BICARBONATE 32.1 MEQ/L (21.0-32.0); POTASSIUM 4.4 MEQ/L (3.5-5.1)
[2016-10-14 04:44] LABS: HEMO FLAGS AUTO DIFF
[2016-10-14 05:52] LABS: PLATELET ESTIMATE SMEAR LOW (NORMAL); PLATELET MORPHOLOGY NORMAL (NORMAL); SCAN/DIFF AUTO DIFF CONFIRMED
[2016-10-14] MEDS: LEVOTHYROXINE SODIUM 25 MCG TAB PO SCH (06:00)
[2016-10-14] MEDS: PANTOPRAZOLE SOD 40 MG DELAYED RELEASE TAB PO SCH (06:26)
[2016-10-14] MEDS: RESP: ALBUTEROL 2.5 MG/IPRATROPIUM 0.5 MG NEB (SCH) NEB ×3 (08:00→19:52)
[2016-10-14] MEDS: AMIODARONE 200 MG TAB PO SCH ×2 (09:02→22:09)
[2016-10-14] MEDS: POLYETHYLENE GLYCOL 17 GM PKG PO SCH (09:02)
[2016-10-14] MEDS: FUROSEMIDE 40 MG/4 ML VIAL IV PUSH SCH (09:02)
[2016-10-14] MEDS: DOCUSATE SODIUM 100 MG CAP PO SCH ×2 (09:02→22:09)
[2016-10-14] MEDS: MULTIVITAMINS/MINERALS THERAPEUTIC TAB PO SCH (09:03)
[2016-10-14] MEDS: ASPIRIN 81 MG CHEW TAB PO SCH (09:03)
[2016-10-14] MEDS: TAMOXIFEN CITRATE 10 MG TAB PO SCH (09:03)
[2016-10-14] MEDS: MAGNESIUM HYDROXIDE SUSP 30 ML CUP PO SCH (09:03)
[2016-10-14] MEDS: SODIUM CHLORIDE 0.9% FLUSH 10 ML FLUSH IV FLUSH SCH ×2 (09:04→21:00)
[2016-10-14] MEDS: ONDANSETRON HCL 4 MG/2 ML VIAL IV PUSH PRN (10:14)
--- NOTE | 2016-10-14 12:03 | PD.CAR.PN ---
CVT Progress Note CVT: POD #: 2 Subjective/Hospital Course: 10/13/16 Doing well. c/o incisional and back pain 10/14/16 c/o pain related to chest tube Objective: Vital Signs Date Time Temp Pulse Resp B/P Pulse Ox O2 Delivery O2 Flow Rate FiO2 10/14/16 11:30 99.1 90 20 136/48 98 10/14/16 11:00 84 10/14/16 11:00 97 Nasal Cannula 2.00 10/14/16 09:19 94 Nasal Cannula 2.00 10/14/16 07:30 98 Nasal Cannula 2.00 10/14/16 07:30 87 10/14/16 07:20 99.6 87 14 131/53 98 10/14/16 04:00 98 Nasal Cannula 2.00 10/14/16 04:00 78 10/14/16 04:00 99.3 78 20 131/53 93 10/14/16 04:00 78 10/14/16 03:00 20 10/14/16 00:00 98.9 95 20 149/55 98 10/14/16 00:00 85 10/13/16 23:44 97 Nasal Cannula 2.00 10/13/16 23:44 89 10/13/16 20:53 96 Nasal Cannula 3.00 10/13/16 20:00 99.1 95 20 155/55 95 10/13/16 19:45 95 10/13/16 19:45 95 Nasal Cannula 2.00 10/13/16 19:00 83 10/13/16 16:31 98.6 90 16 140/74 10/13/16 16:23 98.3 90 18 146/67 96 10/13/16 16:23 84 10/13/16 15:00 84 10/13/16 15:00 95 Nasal Cannula 4.00 10/13/16 15:00 94 Labs: Laboratory Tests Test 10/14/16 03:40 White Blood Count 7.3 TH/MM3 (4.0-11.0) Red Blood Count 2.54 MIL/MM3 (4.00-5.30) Hemoglobin 8.4 GM/DL (11.6-15.3) Hematocrit 24.5 % (35.0-46.0) Mean Corpuscular Volume 96.5 FL (80.0-100.0) Mean Corpuscular Hemoglobin 33.2 PG (27.0-34.0) Mean Corpuscular Hemoglobin 34.4 % Concent (32.0-36.0) Red Cell Distribution Width 13.2 % (11.6-17.2) Platelet Count 45 TH/MM3 (150-450) Mean Platelet Volume 9.0 FL (7.0-11.0) Neutrophils (%) (Auto) 83.2 % (16.0-70.0) Lymphocytes (%) (Auto) 8.5 % (9.0-44.0) Monocytes (%) (Auto) 7.9 % (0.0-8.0) Eosinophils (%) (Auto) 0.3 % (0.0-4.0) Basophils (%) (Auto) 0.1 % (0.0-2.0) Neutrophils # (Auto) 6.1 TH/MM3 (1.8-7.7) Lymphocytes # (Auto) 0.6 TH/MM3 (1.0-4.8) Monocytes # (Auto) 0.6 TH/MM3 (0-0.9) Eosinophils # (Auto) 0.0 TH/MM3 (0-0.4) Basophils # (Auto) 0.0 TH/MM3 (0-0.2) CBC Comment AUTO DIFF Differential Comment AUTO DIFF CONFIRMED Platelet Estimate LOW (NORMAL) Platelet Morphology Comment NORMAL (NORMAL) Sodium Level 143 MEQ/L (136-145) Potassium Level 4.4 MEQ/L (3.5-5.1) Chloride Level 108 MEQ/L (98-107) Carbon Dioxide Level 32.1 MEQ/L (21.0-32.0) Anion Gap 3 MEQ/L (5-15) Blood Urea Nitrogen 19 MG/DL (7-18) Creatinine 0.62 MG/DL (0.50-1.00) Estimat Glomerular Filtration 94 ML/MIN (>89) Rate Random Glucose 109 MG/DL (74-106) Calcium Level 8.0 MG/DL (8.5-10.1) Magnesium Level 2.0 MG/DL (1.5-2.5) Result Diagram: 10/14/1633910/14/16339 Cardiovascular: RRR Telemetry: NSR Pulmonary: CTA GI/: NABS, NT Incision: dry and intact Plan: D/C wires/chest tube Encourage ambulation Stim BM CBC tomorrow due to low plt count and anemia CXR in AM Beta janes Angie Land MD Oct 14, 2016 12:03
[2016-10-14] MEDS: CARVEDILOL 3.125 MG TAB PO SCH ×2 (12:33→22:09)
[2016-10-14] MEDS: SENNOSIDES 8.6 MG TAB PO SCH (22:09)
[2016-10-14] MEDS: ALPRAZolam 0.25 MG TAB PO PRN (22:09)
[2016-10-15] VITALS (30 sets, daily range): BP systolic 138–153; BP diastolic 52–75; PULSE 73–94; RESP 16–18; TEMP 97.8–99.4; O2SAT 92–100
[2016-10-15] MEDS: oxyCODONE/ACETAMINOPHEN 5 MG/325 MG TAB PO PRN (06:10)
[2016-10-15] MEDS: PANTOPRAZOLE SOD 40 MG DELAYED RELEASE TAB PO SCH (06:10)
[2016-10-15] MEDS: LEVOTHYROXINE SODIUM 25 MCG TAB PO SCH (06:10)
--- NOTE | 2016-10-15 06:17 | RADRPT ---
EXAM DATE/TIME: 10/15/2016 05:52 [facility] COMPARISON: CHEST SINGLE AP, October 13, 2016, 4:12. INDICATIONS : Chest pain MEDICAL HISTORY : Hypertension. Cardiovascular disease. Carcinoma, breast. SURGICAL HISTORY : CABG. Hysterectomy. Cholecystectomy. Breast biopsy ENCOUNTER: Subsequent ACUITY: 4 - 6 days PAIN SCORE: 8/10 LOCATION: Bilateral chest FINDINGS: Right midlung atelectasis is seen. Mild left lung base atelectasis and/or infiltrate is seen. Right I J line is present with tip overlapping the expected region of the SVC. Heart and mediastinum are unre markable for technique. CONCLUSION: Interval development of right midlung atelectasis and no change in left lung base atelectasis and/or infiltrate Kristian John MD on October 15, 2016 at 6:15 Board Certified Radiologist. This report was verified electronically.
[2016-10-15] MEDS: INSULIN ASPART SUPPLEMENTAL SCALE SQ SCH ×4 (07:00→21:48)
[2016-10-15 07:09] LABS: HEMATOCRIT 22.4 % (35.0-46.0); MEAN CELL VOLUME 97.9 FL (80.0-100.0); MEAN CORPUSCULAR HEMOGLOBIN 33.4 PG (27.0-34.0); MEAN CORPUSCULAR HGB CONC 34.1 % (32.0-36.0); PLATELET COUNT 45 TH/MM3 (150-450); RED BLOOD COUNT 2.28 MIL/MM3 (4.00-5.30); RED CELL DISTRIBUTION WIDTH 12.8 % (11.6-17.2); WHITE BLOOD COUNT 5.1 TH/MM3 (4.0-11.0)
[2016-10-15 07:12] LABS: REVIEW FLAG FINAL
[2016-10-15] MEDS ORDERED: SODIUM CHLOR 0.9% 250 ML INJ 250 ML IV ONE (07:30)
[2016-10-15] MEDS: DOCUSATE SODIUM 100 MG CAP PO SCH ×2 (08:38→21:49)
[2016-10-15] MEDS: MULTIVITAMINS/MINERALS THERAPEUTIC TAB PO SCH (08:38)
[2016-10-15] MEDS: MAGNESIUM HYDROXIDE SUSP 30 ML CUP PO SCH (08:38)
[2016-10-15] MEDS: ASPIRIN 81 MG CHEW TAB PO SCH (08:38)
[2016-10-15] MEDS: POLYETHYLENE GLYCOL 17 GM PKG PO SCH (08:38)
[2016-10-15] MEDS: FUROSEMIDE 20 MG/2 ML VIAL IV SCH ×2 (08:39→18:04)
[2016-10-15] MEDS: FUROSEMIDE 40 MG/4 ML VIAL IV PUSH SCH (08:39)
[2016-10-15] MEDS: SODIUM CHLORIDE 0.9% FLUSH 10 ML FLUSH IV FLUSH SCH ×2 (08:39→21:51)
[2016-10-15] MEDS: CARVEDILOL 3.125 MG TAB PO SCH ×2 (08:39→21:49)
[2016-10-15] MEDS: TAMOXIFEN CITRATE 10 MG TAB PO SCH (08:41)
[2016-10-15] MEDS: RESP: ALBUTEROL 2.5 MG/IPRATROPIUM 0.5 MG NEB (PRN) NEB (10:04)
--- NOTE | 2016-10-15 12:13 | PD.CAR.PN ---
CVT Progress Note CVT: POD #: 3 Subjective/Hospital Course: 10/13/16 Doing well. c/o incisional and back pain 10/14/16 c/o pain related to chest tube 10/15/16 c/o being tired No BM since Tuesday (c/o constipation preop) Objective: Vital Signs Date Time Temp Pulse Resp B/P Pulse Ox O2 Delivery O2 Flow Rate FiO2 10/15/16 12:02 78 10/15/16 11:23 97.8 74 18 138/55 100 10/15/16 11:00 75 10/15/16 11:00 98 Nasal Cannula 10/15/16 10:14 84 10/15/16 10:06 97 Nasal Cannula 2.00 10/15/16 09:00 82 10/15/16 08:00 76 10/15/16 07:00 99.1 88 18 143/56 98 10/15/16 07:00 88 10/15/16 07:00 93 Room Air 10/15/16 06:13 99.4 82 16 138/56 100 10/15/16 06:00 82 10/15/16 05:00 84 10/15/16 04:00 76 10/15/16 03:53 98 Nasal Cannula 2.00 10/15/16 03:00 73 10/15/16 02:46 97 Nasal Cannula 2.00 10/15/16 02:00 76 10/15/16 01:00 76 10/15/16 00:19 99.1 94 16 139/52 97 10/15/16 00:16 98 Nasal Cannula 2.00 10/14/16 23:00 88 10/14/16 22:00 86 10/14/16 21:29 98 Nasal Cannula 2.00 10/14/16 21:00 84 10/14/16 20:18 99.7 90 16 168/54 98 10/14/16 20:00 86 10/14/16 19:00 83 10/14/16 18:00 98 10/14/16 17:00 84 10/14/16 16:00 81 10/14/16 15:00 88 10/14/16 15:00 98 Nasal Cannula 2.00 10/14/16 15:00 99.8 84 22 124/38 98 10/14/16 14:00 79 6/29/17 13:16 18 10/14/16 13:00 80 Labs: Laboratory Tests Test 10/15/16 10/15/16 06:00 09:15 White Blood Count 5.1 TH/MM3 (4.0-11.0) Red Blood Count 2.28 MIL/MM3 (4.00-5.30) Hemoglobin 7.6 GM/DL (11.6-15.3) Hematocrit 22.4 % (35.0-46.0) Mean Corpuscular Volume 97.9 FL (80.0-100.0) Mean Corpuscular Hemoglobin 33.4 PG (27.0-34.0) Mean Corpuscular Hemoglobin 34.1 % Concent (32.0-36.0) Red Cell Distribution Width 12.8 % (11.6-17.2) Platelet Count 45 TH/MM3 (150-450) Mean Platelet Volume 9.2 FL (7.0-11.0) Blood Type O POSITIVE Antibody Screen NEGATIVE Crossmatch Leukocyte-Reduced Red Blood Cells Blood Bank Comment Result Diagram: 10/15/16 0600 10/14/16 0340 Cardiovascular: RRR Telemetry: NSR Pulmonary: CTA GI/: NABS, NT Incision: dry and intact Plan: Anemic - transfuse 2 units pRBC Diurese Stim BM Up to chair/ambulate. continues to be thrombocytopenic Angie Land MD Oct 15, 2016 12:13
[2016-10-15] MEDS: ACETAMINOPHEN 325 MG TAB PO PRN ×2 (18:04→21:57)
[2016-10-15] MEDS: ALPRAZolam 0.25 MG TAB PO PRN (21:49)
[2016-10-15] MEDS: SENNOSIDES 8.6 MG TAB PO SCH (21:51)
[2016-10-16] VITALS (12 sets, daily range): BP systolic 139–152; BP diastolic 52–62; PULSE 70–79; RESP 16–18; TEMP 98.9–99.4; O2SAT 92–97
[2016-10-16 05:35] LABS: HEMATOCRIT 27.1 % (35.0-46.0); MEAN CELL VOLUME 93.4 FL (80.0-100.0); MEAN CORPUSCULAR HEMOGLOBIN 32.9 PG (27.0-34.0); MEAN CORPUSCULAR HGB CONC 35.2 % (32.0-36.0); PLATELET COUNT 53 TH/MM3 (150-450); RED CELL DISTRIBUTION WIDTH 14.7 % (11.6-17.2)
[2016-10-16 06:02] LABS: REVIEW FLAG FINAL
[2016-10-16] MEDS: INSULIN ASPART SUPPLEMENTAL SCALE SQ SCH (06:12)
[2016-10-16] MEDS: PANTOPRAZOLE SOD 40 MG DELAYED RELEASE TAB PO SCH (06:13)
[2016-10-16] MEDS: ACETAMINOPHEN 325 MG TAB PO PRN (06:13)
[2016-10-16] MEDS: LEVOTHYROXINE SODIUM 25 MCG TAB PO SCH (06:13)
[2016-10-16] MEDS: MULTIVITAMINS/MINERALS THERAPEUTIC TAB PO SCH (08:02)
[2016-10-16] MEDS: ASPIRIN 81 MG CHEW TAB PO SCH (08:02)
[2016-10-16] MEDS: CARVEDILOL 3.125 MG TAB PO SCH (08:02)
[2016-10-16] MEDS: TAMOXIFEN CITRATE 10 MG TAB PO SCH (08:02)
[2016-10-16] MEDS: FUROSEMIDE 20 MG/2 ML VIAL IV SCH (08:02)
[2016-10-16] MEDS: DOCUSATE SODIUM 100 MG CAP PO SCH (08:02)
[2016-10-16] MEDS: SODIUM CHLORIDE 0.9% FLUSH 10 ML FLUSH IV FLUSH SCH (08:03)
[2016-10-16] MEDS: FUROSEMIDE 40 MG/4 ML VIAL IV PUSH SCH (08:04)
[2016-10-16] MEDS: MAGNESIUM HYDROXIDE SUSP 30 ML CUP PO SCH (08:05)
[2016-10-16] MEDS: POLYETHYLENE GLYCOL 17 GM PKG PO SCH (08:05)
[2016-10-16] MEDS ORDERED: CARV3.125 PO (11:50)
[2016-10-16] MEDS ORDERED: ASPI81CH25 PO (11:50)
[2016-10-16] MEDS ORDERED: FURO1TAB60 PO (11:50)
[2016-10-16] MEDS ORDERED: POTA-163 PO (11:50)
[2016-10-16] MEDS ORDERED: TRAM50TA PO (11:50)
--- NOTE | 2016-10-16 11:52 | HHI.FF ---
Face to Face Verification Diagnosis: (1) Aortic stenosis (2) Diastolic heart failure Physical Therapy Order: Evaluate and Treat Home Health Nursing Order: Medical education Signs/symptoms of disease process Medication education-adverse effect I have seen patient Angelina Wright on 10/16/16. My clinical findings support the need for the requested home health care services because: Ltd mobility - disease progression Patient has SOB Limited ability to care for self I certify that my clinical findings support that this patient is homebound because: Post-op weakness Unsafe to leave home unassisted Angie Land MD Oct 16, 2016 11:52
--- NOTE | 2016-10-16 11:57 | HHI.DS ---
Discharge Summary Admission Date Oct 12, 2016 at 05:30 Discharge Date: Oct 16, 2016 Admitting Diagnosis Aortic stenosis Diastolic heart failure (1) Aortic stenosis Diagnosis: Principal (2) Diastolic heart failure Diagnosis: Principal (3) Hypothyroidism Diagnosis: Secondary (4) HTN (hypertension) Diagnosis: Secondary Procedures minimally invasive AVR with a 19 Intuity tissue valve Brief History 71 y/o female presents with dyspnea and severe . She underwent LHC by Dr. Cheung and has no significant CAD. CBC/BMP: 10/16/16 0430 10/14/16 0340 Significant Findings Laboratory Tests Test 10/14/16 10/15/16 10/16/16 03:40 06:00 04:30 Red Blood Count 2.54 MIL/MM3 2.28 MIL/MM3 2.90 MIL/MM3 (4.00-5.30) (4.00-5.30) (4.00-5.30) Hemoglobin 8.4 GM/DL 7.6 GM/DL 9.5 GM/DL (11.6-15.3) (11.6-15.3) (11.6-15.3) Hematocrit 24.5 % 22.4 % 27.1 % (35.0-46.0) (35.0-46.0) (35.0-46.0) Platelet Count 45 TH/MM3 45 TH/MM3 53 TH/MM3 (150-450) (150-450) (150-450) Neutrophils (%) (Auto) 83.2 % (16.0-70.0) Lymphocytes (%) (Auto) 8.5 % (9.0-44.0) Lymphocytes # (Auto) 0.6 TH/MM3 (1.0-4.8) Platelet Estimate LOW (NORMAL) Chloride Level 108 MEQ/L (98-107) Carbon Dioxide Level 32.1 MEQ/L (21.0-32.0) Anion Gap 3 MEQ/L (5-15) Blood Urea Nitrogen 19 MG/DL (7-18) Random Glucose 109 MG/DL (74-106) Calcium Level 8.0 MG/DL (8.5-10.1) Imaging Last Impressions Chest X-Ray 10/13/16 0500 Signed Impressions: Service Date/Time: Thursday, October 13, 2016 04:12 - CONCLUSION: Persistent patchy infiltrates in the left lower lung. Kennedy Arzola MD PE at Discharge chest - CTA COR - RRR ABD - soft, NT wound - dry and intact Hospital Course CVT: POD #: 3 Subjective/Hospital Course: 10/13/16 Doing well. c/o incisional and back pain 10/14/16 c/o pain related to chest tube 10/15/16 c/o being tired No BM since Tuesday (c/o constipation preop) Anemic - transfused 2 units pRBC - diuresed 10/16/16 Improved. Ambulating well on room air She wants to go home - will d/c today Pt Condition on Discharge: Good Discharge Disposition: Disch w/ Home Health Serv Discharge Instructions DIET: Follow Instructions for: Heart Healthy Diet Activities you can perform: Weight Bearing as Anthony, Shower Only-No Bath Activities to avoid: Lifting/Bending, Driving Follow up Referrals: Appointment for Follow Up with Angie Land MD Appointment for Follow Up with Bobby Martinez MD Appointment for Follow Up with Brian Cheung MD New Orders: 2D ECHO BASIC METABOLIC PROF CBC NO DIFF New Medications: Furosemide (Lasix) 40 Mg Tab 40 MG PO BID Blood Pressure Management #14 Ref 0 TAB Potassium Chloride ER (Potassium Chloride ER) 20 Meq Tab 20 MEQ PO BID Electrolyte Replacement #14 Ref 0 TAB Tramadol (Tramadol) 50 Mg Tab 50 MG PO Q6H PRN PAIN #30 Ref 0 TAB Aspirin (Aspirin Low Strength) 81 Mg Chew 81 MG PO DAILY Blood Clot Prevention #100 Ref 3 EA Carvedilol (Coreg) 3.125 Mg Tab 3.125 MG PO Q12HR Blood Pressure Management #60 Ref 3 TAB Continued Medications: Alprazolam (Alprazolam) 0.25 Mg Tab 0.25 MG PO Q8H PRN ANXIETY Ref 0 TAB Ascorbic Acid (Vitamin C) 1,000 Mg Tablet.er Diclofenac Sodium DR (Diclofenac Sodium DR) 75 Mg Tabdr 75 MG PO DAILY #30 Ref 0 TAB Docusate Calcium (Stool Softener) 240 Mg Cap Fish Oil-Cholecalciferol (Alburtis-3 Fish Oil/Vitamin) 1,000-1,000 Mg Cap 1 CAP PO DAILY Nutritional Supplement Ref 0 CAP Lactobacillus Acidophilus (Probiotic) 1 Cap Cap 1 CAP PO TIDAC Nutritional Supplement #90 Ref 0 CAP Levothyroxine (Levothyroxine) 25 Mcg Tab 25 MCG PO DAILY Thyroid #30 Ref 0 TAB Multiple Vitamin (Multi Vitamin Daily) 1 Tab Tab Pantoprazole (Pantoprazole) 40 Mg Tab 40 MG PO DAILY Reflux #30 Ref 0 TAB Tamoxifen Citrate (Bulk) (Tamoxifen Citrate) 1 Pow Pow 20 MG PO DAILY Discontinued Medications: Furosemide (Furosemide) 20 Mg Tab 20 MG PO DAILY #30 Ref 0 TAB Lisinopril (Lisinopril) 5 Mg Tab 5 MG PO DAILY Blood Pressure Management #30 Ref 0 TAB Tramadol HCl (Tramadol Hydrochloride) 50 Mg Tab 0.5 TAB PO TID Angie Land MD Oct 16, 2016 11:57
== END 2016-10-16 14:28 | disposition home or self-care (01) | DRG 220 ==
LOC: HSDI 10-12 05:30 → HCVR 10-12 13:20 → HCIN 10-14 11:41
PROVIDERS: ADMIT Thoracic Surgery (Cardiothoracic Vascular Surgery); ATTEND Thoracic Surgery (Cardiothoracic Vascular Surgery)
PROC: B24BZZ4 Ultrasonography of Heart with Aorta, Transesophageal (ICD-10-PCS; 2016-10-12)
PROC: 30253N1 (ICD-10-PCS; 2016-10-12)
PROC: 02RF0JZ Replacement of Aortic Valve with Synthetic Substitute, Open Approach (ICD-10-PCS; principal; 2016-10-12 07:04)
PROC: 5A1221Z Performance of Cardiac Output, Continuous (ICD-10-PCS; 2016-10-12 07:04)
DX: I35.0 Nonrheumatic aortic (valve) stenosis (principal); I50.30 Unspecified diastolic (congestive) heart failure; I11.0 Hypertensive heart disease with heart failure; D69.6 Thrombocytopenia, unspecified; D64.9 Anemia, unspecified; E03.9 Hypothyroidism, unspecified
CPT/HCPCS: 36430; 71010; 76937; 80048; 82948; 83735; 85014; 85025; 85027; 86850; 86900; 86901; 86920; 88305; 88311; 93005; 93318; 94002; 94150; 94640; 94664; 94667; 94668; C1713; J0131; J0171; J0690; J1265; J1644; J1815; J1940; J2150; J2250; J2370; J2405; J2720; J2930; J3010; J3370; J3475; J3480; J7050; J7120; J7121; P9016; P9047